=== PATIENT | female | born 1960 | race Caucasian/White ===

== ENCOUNTER → 2018-06-30 | Outpatient (CLI) | payer BC ==
[~2018-06-30] MED LIST: LEVOXYL88 MCG PO; LEXAPRO 10 MG T10 M2 PO
== END ==
LOC: M.RAD 14:41
DX: Z12.31 Encounter for screening mammogram for malignant neoplasm of breast (principal)

== ENCOUNTER → 2020-02-04 | Outpatient (CLI) | payer BC | LOC: M.RAD 01-28 11:30 | PROVIDERS: ATTEND Obstetrics & Gynecology Gynecology | DX: Z12.31 Encounter for screening mammogram for malignant neoplasm of breast (principal) ==

== ENCOUNTER → 2021-06-28 | Outpatient (CLI) | payer BC | LOC: M.RAD 15:15 | PROVIDERS: ATTEND Obstetrics & Gynecology Gynecology | DX: Z12.31 Encounter for screening mammogram for malignant neoplasm of breast (principal) ==